=== PATIENT | female | born 1950 | race Caucasian/White ===

== ENCOUNTER 2016-05-10 15:05 | Emergency (ER) | payer MEDICARE ==
[2016-05-10 18:53] VITALS: BP 153/81
== END 2016-05-10 18:48 | disposition left against medical advice (07) ==
LOC: ED 15:05
DX: R10.9 Unspecified abdominal pain (principal); Z53.21 Procedure and treatment not carried out due to patient leaving prior to being seen by health care provider
CPT/HCPCS: 99281

== ENCOUNTER 2016-06-03 10:52 | Emergency (ER) | payer MEDICARE ==
[2016-06-03 12:13] LABS: Urine Bacteria Absent (Absent); Urine Bilirubin Negative (Negative); Urine Glucose Negative (Negative); Urine Nitrite Negative (Negative)
[2016-06-03] MEDS ORDERED: Ondansetron INJ* 2 MG/ML VIAL IV ONE (12:21)
[2016-06-03] MEDS ORDERED: Ketorolac INJ* 30 MG/ML 1 ML VIAL IV PUSH ONE (12:21)
[2016-06-03] MEDS ORDERED: NS 0.9% 1000 ML* 1,000 ML IV ONE (12:21)
[2016-06-03 12:43] LABS: Hematocrit 41 % (35-47); Hemoglobin 13.3 g/dl (12.0-16.0); Mean Corpuscular HGB Conc 33 g/dl (31-36); Mean Corpuscular Hemoglobin 27 pg (27-31); Mean Corpuscular Volume 84 fL (80-97); Mean Platelet Volume 8 um3 (7.4-10.4); Red Blood Count 4.85 10^6/ul (4.0-5.4); Red Cell Distribution Width 13 % (10.5-15); White Blood Count 7.3 10^3/ul (3.5-10.8)
--- NOTE | 2016-06-03 12:45 | ED ---
Micah Arnold Karl, scribed for Sakina Pennington MD on 06/03/16 at 1214 . GI/ HPI - HPI Summary HPI Summary: 65 y/o F presents w/ c/o bilateral/lower back pain (L>R), abd pain, and urinary frequency. Pt stated that 2-3 days ago she to feel bilateral pressure pain in her lower back that is worse on her left side that she rated at a 7/10. Pt reported that it initially felt like she "twinged something" in her back, but the pain got progressively worse and is aggravated by movement. Pt also reported mild nausea and increased urinary frequency with dark colored urine. Pt denied burning and odor with urination. No vaginal itching/discharge. Pt normally takes hydrocodone for a previous back injury and took some this morning which helped but did not resolve her pain. Pt is eating/drinking normally. Pt denies trauma. No paresthesia or extremity pain or weakness Pt states she was diagnosed with a left kidney infection on 04/12/16 at [facility] [place] and was prescribed cephalexin. States symptoms minimal improvement for her PCP prescribed Flagyl , saying it "took 6 weeks to heal." Pt is from [facility] she is scheduled to return on Sunday. Pt states shes has been communicating with her doctor via phone. No fevers, chills, rash. Hx: diverticulitis, back injury, kidney stones. - History of Current Complaint Chief Complaint: EDFlankPain Time Seen by Provider: 06/03/16 12:03 Stated Complaint: PAIN IN BACK AND ABD Hx Obtained From: Patient Onset/Duration: Started Days Ago, Atraumatic, Worse Since Timing: Constant Severity: Moderate Current Severity: Moderate Pain Intensity: 7 - bilat back pain Location of Pain: Flank - bilat Pain Characteristics: Pressure Pain Radiates to: Flank Associated Signs and Symptoms: Positive: Back Pain, Nausea, Flank Pain, Abdominal Pain - suprapubic. Negative: Dizziness, Weakness, Syncope, Vomiting, Chills, Lightheadedness Aggravating Factor(s): Palpation, Movement, Urination, Movement, Walking/ Exertion - Allergy/Home Medications Allergies/Adverse Reactions: Allergies Allergy/AdvReac Type Severity Reaction Status Date / Time Cephalosporins Allergy Unknown Verified 05/10/16 15:11 Reaction Details Ciprofloxacin Allergy GI Upset Verified 05/10/16 15:11 Codeine Allergy Rash Verified 05/10/16 15:11 Meperidine Allergy Unknown Verified 05/10/16 15:11 Reaction Details Morphine Allergy Unknown Verified 05/10/16 15:11 Reaction Details Naloxone Allergy Unknown Verified 05/10/16 15:11 Reaction Details Opium Allergy Unknown Verified 05/10/16 15:11 Reaction Details Penicillins Allergy Rash Verified 05/10/16 15:11 Sulfa Antibiotics Allergy GI Upset Verified 05/10/16 15:11 PMH/Surg Hx/FS Hx/Imm Hx Previously Healthy: No Endocrine/Hematology History: Denies: Hx Anticoagulant Therapy, Hx Diabetes Cardiovascular History: Reports: Hx Hypertension GI History: Reports: Hx Diverticulosis History: Reports: Hx Kidney Stones Psychiatric History: Reports: Hx Anxiety - Surgical History Surgery Procedure, Year, and Place: hysterectomy, oopherectomy, cholecystectomy Infectious Disease History: No Infectious Disease History: Denies: Traveled Outside the [place] in Last 30 Days - Family History Known Family History: Positive: Other - diverticulitis - Social History Alcohol Use: None Hx Substance Use: No Substance Use Type: Reports: None Smoking Status (MU): Former Smoker Review of Systems Constitutional: Negative Negative: Fever, Chills Eyes: Negative ENT: Negative Cardiovascular: Negative Negative: Chest Pain Respiratory: Negative Negative: Shortness Of Breath, Cough Positive: Abdominal Pain - suprapubic, Nausea Positive: frequency, flank pain. Negative: burning, discharge Positive: Myalgia - lower back Skin: Negative Neurological: Negative Negative: Weakness, Paresthesia Psychological: Normal All Other Systems Reviewed And Are Negative: Yes Physical Exam Triage Information Reviewed: Yes Vital Signs On Initial Exam: Initial Vitals Temp Pulse Resp BP Pulse Ox 98.6 F 102 16 116/88 98 06/03/16 10:57 06/03/16 10:57 06/03/16 10:57 06/03/16 10:57 06/03/16 10:57 Vital Signs Reviewed: Yes Appearance: Positive: Well-Appearing - A+Ox3 watching TV well appearing, minimal discomfort with movement, Well-Nourished, Pain Distress - mild discomfort Skin: Positive: Warm, Skin Color Reflects Adequate Perfusion, Dry Head/Face: Positive: Normal Head/Face Inspection Eyes: Positive: Normal, EOMI, DULCE MARIA ENT: Positive: Pharynx normal, TMs normal Neck: Positive: Supple, Nontender, No Lymphadenopathy Respiratory/Lung Sounds: Positive: Clear to Auscultation, Breath Sounds Present. Negative: Rales, Wheezes Cardiovascular: Positive: Normal, RRR. Negative: Murmur Abdomen Description: Positive: Nontender, Soft, Other: - mild suprapubic pain. no CVA tenderness Bowel Sounds: Positive: Present Musculoskeletal: Positive: Other - Pain in paraspinal lumbar area with palpation. Pt resists SLE second to pain in back. +flex/ext knee, ankle without difficulty Neurological: Positive: Normal, Sensory/Motor Intact, Alert, Oriented to Person Place, Time Psychiatric: Positive: Normal, Affect/Mood Appropriate AVPU Assessment: Alert - Holcomb Coma Scale Best Eye Response: 4 - Spontaneous Best Motor Response: 6 - Obeys Commands Best Verbal Response: 5 - Oriented Coma Scale Total: 15 Diagnostics - Vital Signs Vital Signs Temp Pulse Resp BP Pulse Ox 06/03/16 10:57 98.6 F 102 16 116/88 98 - Laboratory Lab Results: Lab Results 06/03/16 06/03/16 Range/Units 12:00 12:27 WBC 7.3 (3.5-10.8) 10^3/ul RBC 4.85 (4.0-5.4) 10^6/ul Hgb 13.3 (12.0-16.0) g/dl Hct 41 (35-47) % MCV 84 (80-97) fL MCH 27 (27-31) pg MCHC 33 (31-36) g/dl RDW 13 (10.5-15) % Plt Count 245 (150-450) 10^3/ul MPV 8 (7.4-10.4) um3 Neut % (Auto) 62.4 (38-83) % Lymph % (Auto) 28.0 (25-47) % Curry % (Auto) 7.0 (1-9) % Eos % (Auto) 1.8 (0-6) % Baso % (Auto) 0.8 (0-2) % Absolute Neuts (auto) 4.5 (1.5-7.7) 10^3/ul Absolute Lymphs (auto) 2.0 (1.0-4.8) 10^3/ul Absolute Monos (auto) 0.5 (0-0.8) 10^3/ul Absolute Eos (auto) 0.1 (0-0.6) 10^3/ul Absolute Basos (auto) 0.1 (0-0.2) 10^3/ul Absolute Nucleated RBC 0 10^3/ul Nucleated RBC % 0 Urine Color Yellow Urine Appearance Clear Urine pH 5.0 (5-9) Ur Specific [place] 1.025 (1.010-1.030) Urine Protein Negative (Negative) Urine Ketones Negative (Negative) Urine Blood Negative (Negative) Urine Nitrate Negative (Negative) Urine Bilirubin Negative (Negative) Urine Urobilinogen Negative (Negative) Ur Leukocyte Esterase Trace H (Negative) Urine WBC (Auto) Trace(0-5/hpf) (Absent) Urine RBC (Auto) Absent (Absent) Ur Squamous Epith Cells Present H (Absent) Urine Bacteria Absent (Absent) Urine Glucose Negative (Negative) Urine Ascorbic Acid * H (Negative) Result Diagrams: 06/03/16 12:27 06/03/16 12:27 Lab Statement: Any lab studies that have been ordered have been reviewed, and results considered in the medical decision making process. Re-Evaluation - Re-Evaluation First Eval Re-Evaluation Time: 13:18 Change: Improved - Pt sitting up at edge of bed. States feels much better. Pt states pain felt stiff lying. Pt states nausea resolved, requesting po will give bland trial Will start marcrobid for uti - culture pending Pt has Rx hydrocodone encourage Motrin, heat, stretching Will give zofran GIGU Course/Dx - Course Assessment/Plan: Pt presents with progressive low back pain and now with suprapubic discomfort. Pt also reports urinary frequency. Pt reports h/o pyelonephritis in Dec and states feels similar. Pt well appearing in minimal discomfort. Reviewed labs and imaging from last visit. Pt's pain seems more c/ w lumbar back pain and not CVA. will check labs, urine. zofran, IVF, toradol. Will hold imaging pending labs and reassess. pt comfortable and in agreement with plan - Diagnoses Provider Diagnoses: UTI (urinary tract infection), Back pain Discharge - Discharge Plan Condition: Improved Disposition: HOME Prescriptions: Nitrofurantoin Monohyd Macro [Macrobid] 100 mg PO BID #14 cap Ondansetron ODT TAB* [Zofran Odt TAB*] 4 mg PO Q6H PRN #10 tab.odt PRN Reason: nausea Patient Education Materials: Urinary Tract Infection in Women (ED), Low Back Strain (ED) Referrals: Non Staff,Doctor [Primary Care Provider] - Additional Instructions: - Stay well hydrated. Drink plenty of non-alcoholic, non-caffinated beverages - Your testing reveals an early bladder infection - the doctor is not concerned you have a kidney infection today. Take antibiotics as prescribed - It is recommended you alternate ibuprofen (advil, motrin) and tylenol product (tylenol or hydrocodone) every 3 hours for pain or fever. Take with food. Do NOT take for more than 4-5 days - slow, gentle stretching exercises are important -apply heat to your low back - then stretching exercises - Schedule a follow-up appointment with your doctor when you return home. Contact your doctor or return with questions or concerns The documentation as recorded by the Micah lopez Karl accurately reflects the service I personally performed and the decisions made by me, Sakina Pennington MD.
[2016-06-03 12:53] LABS: Albumin 3.8 g/dL (3.2-5.2); BUN/Creatinine Ratio 10.6 (8-20); Calcium 9.7 mg/dL (8.6-10.3); EGFR African American 76.9 (>60); EGFR Non-African American 59.8 (>60); Globulin 2.8 g/dL (2-4); Potassium 4.1 mmol/L (3.5-5.0); Total Bilirubin 0.5 mg/dL (0.2-1.0); Total Protein 6.6 g/dL (6.4-8.9)
[2016-06-03] MEDS ORDERED: Nitrofurantoin Macrocrystals* 100 MG CAP PO ONE (13:19)
[2016-06-03 14:06] VITALS: BP 108/72
== END 2016-06-03 14:07 | disposition home or self-care (01) ==
LOC: ED 10:52
DX: N39.0 Urinary tract infection, site not specified (principal); M54.5 Low back pain; Z88.0 Allergy status to penicillin; Z88.2 Allergy status to sulfonamides; Z88.5 Allergy status to narcotic agent
CPT/HCPCS: 36415; 80053; 81003; 81015; 85025; 87086; 99283; A9270-GY; J1885; J2405

== ENCOUNTER 2023-03-24 05:55 | Observation (INO) ==
[2023-03-24 06:44] LABS: Hematocrit 39.3 % (35-45); Hemoglobin 12.5 g/dL (11.5-14.3); Mean Corpuscular Hemoglobin 24.3 pg (27-33); Mean Corpuscular Hgb Conc 31.8 g/dL (31-36); Mean Corpuscular Volume 76.2 fL (80-97); Mean Platelet Volume 8.2 fL (7.5-11.2); Platelet Count 270 10^3/uL (150-450); Red Blood Count 5.15 10^6/uL (3.63-4.92); Red Cell Distribution Width 24.1 % (12-17); White Blood Count 15.7 10^3/uL (3.8-11.8)
[2023-03-24] MEDS ORDERED: Ondansetron 4 mg VIAL 2 MG/ML 2 ml VIAL IV ONE (06:51)
[2023-03-24] MEDS ORDERED: Acetaminophen IV 1 GM/100ML 1,000 MG/100 ML BAG IV ONE (06:51)
[2023-03-24 06:55] LABS: ALT 8 U/L (7-52); AST 9 U/L (13-39); Albumin 3.8 g/dL (3.2-5.2); Albumin/Globulin Ratio 1.4 (1-3); Alkaline Phosphatase 75 U/L (35-149); Anion Gap 6 mmol/L (2-16); Blood Urea Nitrogen 10 mg/dL (6-24); CO2 Carbon Dioxide 27 mmol/L (22-32); Calcium 9.5 mg/dL (8.6-10.3); Chloride 105 mmol/L (101-111); Globulin 2.8 g/dL (2-4); Glucose 117 mg/dL (70-100); Lipase 19 U/L (11.0-82.0); Potassium 4.1 mmol/L (3.5-5.0); Sodium 138 mmol/L (135-145); Total Bilirubin 0.5 mg/dL (0.2-1.0); Total Protein 6.6 g/dL (6.4-8.9); eGFR CKD-EPI 78.2 (>60)
[2023-03-24 07:01] LABS: High Sens Troponin Baseline < 3 pg/mL (<15)
[2023-03-24] MEDS ORDERED: Iohexol 350 (CONTRAST) 500 ML MDV IV ONE (07:01)
[2023-03-24 07:18] LABS: ABS Basophils 0.1 10^3/uL (0.0-0.1); ABS Eosinophils 0.1 10^3/uL (0.0-0.5); ABS Lymphocytes 1.3 10^3/uL (1.0-4.8); ABS Monocytes 1.2 10^3/uL (0.0-0.9); Anisocytosis 2+; Eosinophil % 0.5 %; Large Platelets Present; Lymphocyte % 8.4 %; Microcytosis 1+
[2023-03-24] MEDS ORDERED: metroNIDAZOLE IV 500 MG/100ML 500 MG/100 ML BAG IVPB ONE (08:13)
[2023-03-24] MEDS ORDERED: Ciprofloxacin 400mg IVPREMIX 400 MG/200 ML BAG IVPB ONE (08:13)
[2023-03-24 08:20] LABS: High Sensitivity Troponin 1 Hr < 3 pg/mL (<15)
[2023-03-24] MEDS ORDERED: Lactated Ringers SEPSIS* BAG 1,920 ML IV ONE (08:20)
[2023-03-24] MEDS ORDERED: cefTRIAXone 1 gm/50 mL D5W 1 GM/50 ML BAG IV ONE (08:28)
[2023-03-24] MEDS ORDERED: CEFTRIAXONE IV ONE (09:00)
[2023-03-24] MEDS ORDERED: [UNRECOGNIZED DRUG - OTHER] IV ONE (09:00)
[2023-03-24 10:43] LABS: Urine Appearance Clear; Urine Bacteria Absent (Absent); Urine Bilirubin Negative (Negative); Urine Blood Negative (Negative); Urine Color Yellow; Urine Glucose Negative (Negative); Urine Ketones Negative (Negative); Urine Nitrite Negative (Negative); Urine Protein Negative (Negative); Urine Red Blood Cell Trace(0-2/hpf) (Absent); Urine Squamous Epithelial Cell Present (Absent); Urine Urobilinogen Negative (Negative); Urine White Blood Cell 1+(6-10/hpf) (Absent)
[2023-03-24 10:49] LABS: Urine Specific Gravity > 1.060 (1.002-1.030)
[2023-03-24 11:31] LABS: C Reactive Protein 103.83 mg/L (<8.01)
[2023-03-24] MEDS: NS 0.9% 1000 ml BAG 1,000 ML IV SCH (12:48)
[2023-03-24] MEDS: Carbidopa/Levodop 25/100 MG TAB PO SCH ×2 (12:50→16:31)
[2023-03-24] MEDS: Acetaminophen IV 1 GM/100ML 1,000 MG/100 ML BAG IV PRN (19:25)
[2023-03-24] MEDS: Carbidopa/Levodop CR 50/200 TAB.CR PO SCH (20:28)
[2023-03-24] MEDS: Enoxaparin 40 MG/0.4 ML SYR SUBCUT SCH (20:29)
[2023-03-25] MEDS: NS 0.9% 1000 ml BAG 1,000 ML IV SCH (02:36)
[2023-03-25 06:35] LABS: C Reactive Protein 158.53 mg/L (<8.01); Calcium 9.1 mg/dL (8.6-10.3); Creatinine, Serum 0.76 mg/dL (0.51-0.95); eGFR CKD-EPI 83.2 (>60)
[2023-03-25 06:47] LABS: ABS Basophils 0.1 10^3/uL (0.0-0.1); ABS Eosinophils 0.1 10^3/uL (0.0-0.5); ABS Lymphocytes 1.5 10^3/uL (1.0-4.8); ABS Monocytes 0.8 10^3/uL (0.0-0.9); ABS Neutrophils 8.5 10^3/uL (1.5-7.6); Hematocrit 36.2 % (35-45); Hemoglobin 11.7 g/dL (11.5-14.3); Lymphocyte % 13.7 %; Mean Corpuscular Hemoglobin 24.8 pg (27-33); Mean Corpuscular Hgb Conc 32.3 g/dL (31-36); Mean Corpuscular Volume 76.7 fL (80-97); Mean Platelet Volume 8.6 fL (7.5-11.2); Platelet Count 236 10^3/uL (150-450); Red Blood Count 4.73 10^6/uL (3.63-4.92)
[2023-03-25] MEDS: cefTRIAXone 1 gm/50 mL D5W 1 GM/50 ML BAG IV SCH (08:30)
[2023-03-25] MEDS: CMC:LINACLOTIDE 72 MCG CAP (NF) PO SCH (08:30)
[2023-03-25] MEDS: Carbidopa/Levodop 25/100 MG TAB PO SCH ×3 (08:32→16:22)
[2023-03-25] MEDS ORDERED: Furosemide 20 mg/2 ml IV VIAL IV ONE (14:40)
[2023-03-25] MEDS: Enoxaparin 40 MG/0.4 ML SYR SUBCUT SCH (21:11)
[2023-03-25] MEDS: Carbidopa/Levodop CR 50/200 TAB.CR PO SCH (21:14)
[2023-03-26] MEDS: Acetaminophen IV 1 GM/100ML 1,000 MG/100 ML BAG IV PRN (06:10)
[2023-03-26 07:46] LABS: C Reactive Protein 141.87 mg/L (<8.01); Calcium 9.6 mg/dL (8.6-10.3); Creatinine, Serum 0.72 mg/dL (0.51-0.95); Potassium 3.5 mmol/L (3.5-5.0); eGFR CKD-EPI 88.8 (>60)
[2023-03-26 07:49] LABS: Hematocrit 38.3 % (35-45); Hemoglobin 12.3 g/dL (11.5-14.3); Mean Corpuscular Hemoglobin 24.5 pg (27-33); Mean Corpuscular Hgb Conc 32.1 g/dL (31-36); Mean Corpuscular Volume 76.5 fL (80-97); Mean Platelet Volume 8.3 fL (7.5-11.2); Platelet Count 264 10^3/uL (150-450); Red Blood Count 5.01 10^6/uL (3.63-4.92); Red Cell Distribution Width 23.5 % (12-17); White Blood Count 7.7 10^3/uL (3.8-11.8)
[2023-03-26] MEDS: Carbidopa/Levodop 25/100 MG TAB PO SCH ×3 (07:57→16:55)
[2023-03-26] MEDS: cefTRIAXone 1 gm/50 mL D5W 1 GM/50 ML BAG IV SCH (08:18)
[2023-03-26 08:25] LABS: ABS Eosinophils 0.2 10^3/uL (0.0-0.5); ABS Lymphocytes 1.4 10^3/uL (1.0-4.8); ABS Monocytes 0.5 10^3/uL (0.0-0.9); ABS Neutrophils 5.6 10^3/uL (1.5-7.6); ABS Nucleated RBC 0.01 10^3/ul; Lymphocyte % 18.2 %; Nucleated Red Blood Cells % 0.1 %/100WBC (0.0-0.8)
[2023-03-26] MEDS: CMC:LINACLOTIDE 72 MCG CAP (NF) PO SCH (09:01)
[2023-03-26] MEDS: Enoxaparin 40 MG/0.4 ML SYR SUBCUT SCH (20:34)
[2023-03-26] MEDS: Carbidopa/Levodop CR 50/200 TAB.CR PO SCH (20:35)
[2023-03-27] MEDS: cefTRIAXone 1 gm/50 mL D5W 1 GM/50 ML BAG IV SCH (08:04)
[2023-03-27] MEDS: Carbidopa/Levodop 25/100 MG TAB PO SCH ×2 (08:06→12:19)
[2023-03-27] MEDS: CMC:LINACLOTIDE 72 MCG CAP (NF) PO SCH (08:06)
[2023-03-27 13:28] VITALS: BP 109/66
== END 2023-03-27 15:27 | disposition home or self-care (01) ==
LOC: EDHOLD 05:55 → ED 05:55 → MED 12:04
PROVIDERS: ADMIT Hospitalist; ATTEND Hospitalist

== ENCOUNTER 2023-04-03 16:21 | Inpatient (IN) ==
[2023-04-03 17:26] LABS: Anion Gap 4 mmol/L (2-16); Blood Urea Nitrogen 8 mg/dL (6-24); CO2 Carbon Dioxide 31 mmol/L (22-32); Chloride 103 mmol/L (101-111); Creatinine, Serum 0.68 mg/dL (0.51-0.95); Glucose 92 mg/dL (70-100); Potassium 3.9 mmol/L (3.5-5.0); Sodium 138 mmol/L (135-145); eGFR CKD-EPI 92.5 (>60)
[2023-04-03 17:32] LABS: High Sens Troponin Baseline 3 pg/mL (<15)
[2023-04-03 17:36] LABS: ALT < 3 U/L (7-52); AST 9 U/L (13-39); Albumin 3.7 g/dL (3.2-5.2); Albumin/Globulin Ratio 1.4 (1-3); Alkaline Phosphatase 63 U/L (35-149); Globulin 2.6 g/dL (2-4); Total Bilirubin 0.4 mg/dL (0.2-1.0); Total Protein 6.3 g/dL (6.4-8.9)
[2023-04-03] MEDS ORDERED: Iohexol 350 (CONTRAST) 500 ML MDV IV ONE (17:38)
[2023-04-03 18:02] LABS: ABS Basophils 0.1 10^3/uL (0.0-0.1); ABS Eosinophils 0.1 10^3/uL (0.0-0.5); ABS Lymphocytes 1.4 10^3/uL (1.0-4.8); ABS Monocytes 1.3 10^3/uL (0.0-0.9); ABS Neutrophils 13.1 10^3/uL (1.5-7.6); Anisocytosis 1+; Eosinophil % 0.3 %; Hematocrit 36.8 % (35-45); Lymphocyte % 8.5 %; Mean Corpuscular Hgb Conc 32.5 g/dL (31-36); Mean Platelet Volume 8.2 fL (7.5-11.2); Microcytosis 1+; Platelet Count 276 10^3/uL (150-450); Red Blood Count 4.78 10^6/uL (3.63-4.92); Red Cell Distribution Width 23.4 % (12-17); White Blood Count 15.9 10^3/uL (3.8-11.8)
[2023-04-03] MEDS ORDERED: Cefepime 2 GM in Dextrose 2 GM/50 ML BAG IV ONE (18:14)
[2023-04-03] MEDS ORDERED: Ciprofloxacin 400mg IVPREMIX 400 MG/200 ML BAG IVPB ONE (18:14)
[2023-04-03] MEDS ORDERED: HYDROcodone/ACETAMIN 5/325 mg TAB PO ONE (18:15)
[2023-04-03] MEDS ORDERED: NS 0.9% 1000 ml BAG 1,000 ML IV ONE (18:15)
[2023-04-03 18:28] LABS: High Sensitivity Troponin 1 Hr 3 pg/mL (<15)
[2023-04-03] MEDS ORDERED: ZOSYN 3.375 GM x ONE DOSE over 30 miuntes IV (22:00)
[2023-04-03] MEDS ORDERED: Zosyn per Pharmacy NOTE FOLLOW UP SCH (22:00)
[2023-04-03 22:14] LABS: C Reactive Protein 98.15 mg/L (<8.01)
[2023-04-03] MEDS: Enoxaparin 40 MG/0.4 ML SYR SUBCUT SCH (23:46)
[2023-04-04] MEDS ORDERED: Piperacillin/Tazobac 3.375 BAG 3.375 GM/100 ML BAG IV SCH (02:30)
[2023-04-04] MEDS: Piperacillin/Tazobac 3.375 BAG 3.375 GM/100 ML BAG IV SCH ×3 (03:20→17:58)
[2023-04-04] MEDS: Acetaminophen IV 1 GM/100ML 1,000 MG/100 ML BAG IV SCH ×3 (04:05→21:40)
[2023-04-04] MEDS: Carbidopa/Levodop 25/100 MG TAB PO SCH ×3 (07:39→16:21)
[2023-04-04 07:51] LABS: ABS Basophils 0.1 10^3/uL (0.0-0.1); ABS Eosinophils 0.1 10^3/uL (0.0-0.5); ABS Lymphocytes 1.4 10^3/uL (1.0-4.8); ABS Neutrophils 8.9 10^3/uL (1.5-7.6); Eosinophil % 0.6 %; Hematocrit 35.4 % (35-45); Hemoglobin 11.5 g/dL (11.5-14.3); Lymphocyte % 12.5 %; Mean Corpuscular Hemoglobin 24.8 pg (27-33); Mean Corpuscular Hgb Conc 32.4 g/dL (31-36); Mean Corpuscular Volume 76.7 fL (80-97); Mean Platelet Volume 8.5 fL (7.5-11.2); Platelet Count 232 10^3/uL (150-450); Red Blood Count 4.61 10^6/uL (3.63-4.92); Red Cell Distribution Width 22.8 % (12-17); White Blood Count 11.4 10^3/uL (3.8-11.8)
[2023-04-04 08:16] LABS: Calcium 8.8 mg/dL (8.6-10.3); Creatinine, Serum 0.78 mg/dL (0.51-0.95); Potassium 3.5 mmol/L (3.5-5.0); eGFR CKD-EPI 80.6 (>60)
[2023-04-04] MEDS: CMCS: Venlafaxine 25 mg TAB (NF) PO SCH (09:33)
[2023-04-04] MEDS ORDERED: Potassium Chlor 20 meq TAB.ER PO ONE (17:41)
[2023-04-04] MEDS: Carbidopa/Levodop CR 50/200 TAB.CR PO SCH (21:42)
[2023-04-04] MEDS: Enoxaparin 40 MG/0.4 ML SYR SUBCUT SCH (21:43)
[2023-04-05] MEDS: Piperacillin/Tazobac 3.375 BAG 3.375 GM/100 ML BAG IV SCH ×3 (00:53→16:05)
[2023-04-05] MEDS: Acetaminophen IV 1 GM/100ML 1,000 MG/100 ML BAG IV SCH ×3 (04:31→21:33)
[2023-04-05 06:20] LABS: ABS Basophils 0.1 10^3/uL (0.0-0.1); ABS Eosinophils 0.1 10^3/uL (0.0-0.5); ABS Neutrophils 13.9 10^3/uL (1.5-7.6); ABS Nucleated RBC 0.01 10^3/ul; Eosinophil % 0.5 %; Hematocrit 34.8 % (35-45); Hemoglobin 10.9 g/dL (11.5-14.3); Lymphocyte % 6.4 %; Mean Corpuscular Hemoglobin 24.4 pg (27-33); Mean Corpuscular Hgb Conc 31.4 g/dL (31-36); Mean Platelet Volume 8.7 fL (7.5-11.2); Platelet Count 238 10^3/uL (150-450); Red Blood Count 4.47 10^6/uL (3.63-4.92); Red Cell Distribution Width 22.4 % (12-17); White Blood Count 16.1 10^3/uL (3.8-11.8)
[2023-04-05] MEDS: Carbidopa/Levodop 25/100 MG TAB PO SCH ×3 (06:39→16:05)
[2023-04-05] MEDS: CMCS: Venlafaxine 25 mg TAB (NF) PO SCH (07:59)
[2023-04-05] MEDS: Carbidopa/Levodop CR 50/200 TAB.CR PO SCH (21:33)
[2023-04-05] MEDS: Enoxaparin 40 MG/0.4 ML SYR SUBCUT SCH (21:34)
[2023-04-06] MEDS: Piperacillin/Tazobac 3.375 BAG 3.375 GM/100 ML BAG IV SCH ×2 (01:16→08:12)
[2023-04-06] MEDS: Acetaminophen IV 1 GM/100ML 1,000 MG/100 ML BAG IV SCH ×2 (04:46→12:40)
[2023-04-06 07:43] LABS: Hemoglobin 11.5 g/dL (11.5-14.3); Mean Corpuscular Hemoglobin 25.2 pg (27-33); Mean Corpuscular Volume 78.7 fL (80-97); Mean Platelet Volume 8.3 fL (7.5-11.2); Platelet Count 230 10^3/uL (150-450); Red Blood Count 4.57 10^6/uL (3.63-4.92); Red Cell Distribution Width 22.2 % (12-17)
[2023-04-06] MEDS: Carbidopa/Levodop 25/100 MG TAB PO SCH ×3 (08:12→16:40)
[2023-04-06] MEDS: CMCS: Venlafaxine 25 mg TAB (NF) PO SCH (08:12)
[2023-04-06 08:30] LABS: ABS Basophils 0.1 10^3/uL (0.0-0.1); ABS Eosinophils 0.1 10^3/uL (0.0-0.5); ABS Lymphocytes 1.3 10^3/uL (1.0-4.8); ABS Monocytes 0.7 10^3/uL (0.0-0.9); ABS Neutrophils 7.8 10^3/uL (1.5-7.6); ABS Nucleated RBC 0.01 10^3/ul; Eosinophil % 0.8 %; Lymphocyte % 12.6 %; Nucleated Red Blood Cells % 0.1 %/100WBC (0.0-0.8)
[2023-04-06 14:28] VITALS: BP 114/68
== END 2023-04-06 17:20 | disposition home health service (06) | DRG 392 ==
LOC: ED 16:21 → EDHOLD 21:36 → SUATTDRO 21:36 → MED 04-04 00:04
PROVIDERS: ADMIT Internal Medicine; ATTEND Hospitalist

== ENCOUNTER 2023-04-19 14:12 | Inpatient (IN) ==
[2023-04-19] MEDS ORDERED: Ondansetron 4 mg VIAL 2 MG/ML 2 ml VIAL IV ONE (14:53)
[2023-04-19] MEDS ORDERED: Acetaminophen IV 1 GM/100ML 1,000 MG/100 ML BAG IV ONE (14:53)
[2023-04-19] MEDS ORDERED: Lactated Ringers 1000 ml BAG 1,000 ML IV ONE (14:54)
[2023-04-19 15:23] LABS: Anion Gap 6 mmol/L (2-16); Blood Urea Nitrogen 9 mg/dL (6-24); CO2 Carbon Dioxide 29 mmol/L (22-32); Calcium 9.6 mg/dL (8.6-10.3); Chloride 101 mmol/L (101-111); Creatinine, Serum 0.68 mg/dL (0.51-0.95); Glucose 105 mg/dL (70-100); Potassium 3.9 mmol/L (3.5-5.0); Sodium 136 mmol/L (135-145); eGFR CKD-EPI 92.5 (>60)
[2023-04-19 15:30] LABS: ALT < 3 U/L (7-52); AST 8 U/L (13-39); Albumin 3.8 g/dL (3.2-5.2); Albumin/Globulin Ratio 1.3 (1-3); Alkaline Phosphatase 65 U/L (35-149); Globulin 2.9 g/dL (2-4); Hematocrit 37.4 % (35-45); Hemoglobin 12.2 g/dL (11.5-14.3); Lipase < 10 U/L (11.0-82.0); Mean Corpuscular Hemoglobin 25.3 pg (27-33); Mean Corpuscular Hgb Conc 32.6 g/dL (31-36); Mean Corpuscular Volume 77.7 fL (80-97); Mean Platelet Volume 9.3 fL (7.5-11.2); Platelet Count 244 10^3/uL (150-450); Red Blood Count 4.81 10^6/uL (3.63-4.92); Total Bilirubin 0.7 mg/dL (0.2-1.0); Total Protein 6.7 g/dL (6.4-8.9); White Blood Count 14.7 10^3/uL (3.8-11.8)
[2023-04-19] MEDS ORDERED: Iohexol 300 (CONTRAST) 10 ML SDV IV ONE (15:56)
[2023-04-19 16:06] LABS: ABS Basophils 0.1 10^3/uL (0.0-0.1); ABS Eosinophils 0.1 10^3/uL (0.0-0.5); ABS Lymphocytes 1.1 10^3/uL (1.0-4.8); ABS Neutrophils 12.5 10^3/uL (1.5-7.6); ABS Nucleated RBC 0.01 10^3/ul; Anisocytosis 1+; Eosinophil % 0.6 %; Lymphocyte % 7.5 %
[2023-04-19] MEDS ORDERED: Piperacillin/Tazobac 3.375 BAG 3.375 GM/100 ML BAG IV ONE (16:43)
[2023-04-19] MEDS ORDERED: Carbidopa/Levodop 25/100 MG TAB PO ONE (16:58)
[2023-04-19] MEDS: Enoxaparin 40 MG/0.4 ML SYR SUBCUT SCH (17:46)
[2023-04-19] MEDS ORDERED: Zosyn per Pharmacy NOTE FOLLOW UP SCH (18:00)
[2023-04-19] MEDS ORDERED: Lactated Ringers 1000 ml BAG 1,000 ML IV SCH (19:00)
[2023-04-19] MEDS ORDERED: Acetaminophen IV 1 GM/100ML 1,000 MG/100 ML BAG IV PRN (19:47)
[2023-04-19] MEDS: ZOSYN 3.375 GM Q8H per EXTENDED INFUSION IV SCH (21:07)
[2023-04-19] MEDS: Carbidopa/Levodop CR 50/200 TAB.CR PO SCH (21:07)
[2023-04-20] MEDS: Morphine 2 MG/ML SYRINGE IV PRN ×4 (01:42→20:07)
[2023-04-20] MEDS: ZOSYN 3.375 GM Q8H per EXTENDED INFUSION IV SCH ×4 (06:21→20:12)
[2023-04-20 07:34] LABS: Hematocrit 35.9 % (35-45); Hemoglobin 11.7 g/dL (11.5-14.3); Mean Corpuscular Hemoglobin 25.3 pg (27-33); Mean Corpuscular Hgb Conc 32.4 g/dL (31-36); Mean Corpuscular Volume 78.1 fL (80-97); Mean Platelet Volume 9.4 fL (7.5-11.2); Platelet Count 218 10^3/uL (150-450); Red Cell Distribution Width 20.6 % (12-17); White Blood Count 9.6 10^3/uL (3.8-11.8)
[2023-04-20 07:43] LABS: Calcium 9.2 mg/dL (8.6-10.3); Creatinine, Serum 0.64 mg/dL (0.51-0.95); Magnesium 1.8 mg/dL (1.9-2.7); Potassium 3.9 mmol/L (3.5-5.0); eGFR CKD-EPI 93.8 (>60)
[2023-04-20 07:44] LABS: ABS Basophils 0.1 10^3/uL (0.0-0.1); ABS Eosinophils 0.1 10^3/uL (0.0-0.5); ABS Lymphocytes 1.5 10^3/uL (1.0-4.8); ABS Monocytes 0.8 10^3/uL (0.0-0.9); ABS Neutrophils 7.2 10^3/uL (1.5-7.6); ABS Nucleated RBC 0.01 10^3/ul; Eosinophil % 0.7 %; Lymphocyte % 15.7 %; Nucleated Red Blood Cells % 0.1 %/100WBC (0.0-0.8)
[2023-04-20] MEDS: Carbidopa/Levodop 25/100 MG TAB PO SCH ×3 (07:48→16:27)
[2023-04-20] MEDS: CMCS: Venlafaxine 25 mg TAB (NF) PO SCH (07:49)
[2023-04-20] MEDS ORDERED: Magnesium Sulfate IV 1GM/100ML 1 GM/100 ML BAG IV ONE (08:00)
[2023-04-20] MEDS ORDERED: Ondansetron 4 mg VIAL 2 MG/ML 2 ml VIAL IV ONE (09:07)
[2023-04-20] MEDS ORDERED: Lactated Ringers 1000 ml BAG 1,000 ML IV SCH (12:00)
[2023-04-20] MEDS: Enoxaparin 40 MG/0.4 ML SYR SUBCUT SCH (16:52)
[2023-04-20] MEDS: Carbidopa/Levodop CR 50/200 TAB.CR PO SCH (20:06)
[2023-04-21] MEDS: Morphine 2 MG/ML SYRINGE IV PRN ×3 (03:30→22:14)
[2023-04-21] MEDS: ZOSYN 3.375 GM Q8H per EXTENDED INFUSION IV SCH (05:08)
[2023-04-21] MEDS: Carbidopa/Levodop 25/100 MG TAB PO SCH ×3 (06:07→16:46)
[2023-04-21 07:52] LABS: Hematocrit 36.2 % (35-45); Hemoglobin 11.8 g/dL (11.5-14.3); Mean Corpuscular Hemoglobin 25.6 pg (27-33); Mean Corpuscular Hgb Conc 32.8 g/dL (31-36); Mean Corpuscular Volume 78.1 fL (80-97); Mean Platelet Volume 8.9 fL (7.5-11.2); Platelet Count 228 10^3/uL (150-450); Red Blood Count 4.63 10^6/uL (3.63-4.92); Red Cell Distribution Width 20.1 % (12-17); White Blood Count 5.5 10^3/uL (3.8-11.8)
[2023-04-21 07:56] LABS: Calcium 9.4 mg/dL (8.6-10.3); Creatinine, Serum 0.73 mg/dL (0.51-0.95); eGFR CKD-EPI 87.3 (>60)
[2023-04-21 09:00] LABS: ABS Eosinophils 0.1 10^3/uL (0.0-0.5); ABS Monocytes 0.5 10^3/uL (0.0-0.9); ABS Neutrophils 3.9 10^3/uL (1.5-7.6); ABS Nucleated RBC 0.01 10^3/ul; Anisocytosis 1+; Eosinophil % 2.2 %; Lymphocyte % 18.9 %; Microcytosis 1+; Nucleated Red Blood Cells % 0.1 %/100WBC (0.0-0.8)
[2023-04-21] MEDS: Ondansetron 4 mg VIAL 2 MG/ML 2 ml VIAL IV PRN ×2 (09:27→22:15)
[2023-04-21] MEDS: CMCS: Venlafaxine 25 mg TAB (NF) PO SCH (09:34)
[2023-04-21 10:22] LABS: C Reactive Protein 91.84 mg/L (<8.01)
[2023-04-21] MEDS: Enoxaparin 40 MG/0.4 ML SYR SUBCUT SCH (16:48)
[2023-04-21] MEDS: Carbidopa/Levodop CR 50/200 TAB.CR PO SCH (20:01)
[2023-04-22] MEDS: Carbidopa/Levodop 25/100 MG TAB PO SCH ×3 (05:42→17:18)
[2023-04-22] MEDS: Morphine 2 MG/ML SYRINGE IV PRN ×4 (05:47→19:33)
[2023-04-22 06:45] LABS: Hematocrit 36.6 % (35-45); Hemoglobin 11.8 g/dL (11.5-14.3); Mean Corpuscular Hemoglobin 25.3 pg (27-33); Mean Corpuscular Hgb Conc 32.2 g/dL (31-36); Mean Corpuscular Volume 78.6 fL (80-97); Mean Platelet Volume 9.1 fL (7.5-11.2); Platelet Count 238 10^3/uL (150-450); Red Blood Count 4.66 10^6/uL (3.63-4.92); Red Cell Distribution Width 19.7 % (12-17); White Blood Count 4.6 10^3/uL (3.8-11.8)
[2023-04-22 06:52] LABS: Calcium 9.2 mg/dL (8.6-10.3); Creatinine, Serum 0.66 mg/dL (0.51-0.95); Magnesium 1.9 mg/dL (1.9-2.7); Potassium 4.2 mmol/L (3.5-5.0); eGFR CKD-EPI 93.1 (>60)
[2023-04-22 07:37] LABS: ABS Eosinophils 0.1 10^3/uL (0.0-0.5); ABS Lymphocytes 1.3 10^3/uL (1.0-4.8); ABS Monocytes 0.5 10^3/uL (0.0-0.9); ABS Neutrophils 2.7 10^3/uL (1.5-7.6); Eosinophil % 3.1 %; Lymphocyte % 27.2 %; Nucleated Red Blood Cells % 0.1 %/100WBC (0.0-0.8)
[2023-04-22] MEDS: CMCS: Venlafaxine 25 mg TAB (NF) PO SCH (10:05)
[2023-04-22] MEDS: Enoxaparin 40 MG/0.4 ML SYR SUBCUT SCH (17:18)
[2023-04-22] MEDS: Carbidopa/Levodop CR 50/200 TAB.CR PO SCH (19:58)
[2023-04-23] MEDS: Carbidopa/Levodop 25/100 MG TAB PO SCH ×3 (06:14→15:09)
[2023-04-23] MEDS: Morphine 2 MG/ML SYRINGE IV PRN ×3 (06:14→15:08)
[2023-04-23] MEDS: CMCS: Venlafaxine 25 mg TAB (NF) PO SCH (10:59)
[2023-04-23 14:01] VITALS: BP 115/66
== END 2023-04-23 16:30 | disposition home or self-care (01) | DRG 392 ==
LOC: ED 14:12 → EDHOLD 17:11 → SUATTDRO 17:11 → MEDTELE 04-20 11:26
PROVIDERS: ADMIT Student in an Organized Health Care Education/Training Program; ATTEND Hospitalist

== ENCOUNTER 2023-06-27 13:09 | Observation (INO) ==
[2023-06-27 13:39] LABS: ABS Basophils 0.1 10^3/uL (0.0-0.1); ABS Lymphocytes 1.5 10^3/uL (1.0-4.8); ABS Monocytes 0.5 10^3/uL (0.0-0.9); ABS Neutrophils 7.6 10^3/uL (1.5-7.6); ABS Nucleated RBC 0.01 10^3/ul; Eosinophil % 0.3 %; Hematocrit 40.2 % (35-45); Lymphocyte % 15.2 %; Mean Corpuscular Hemoglobin 25.5 pg (27-33); Mean Corpuscular Hgb Conc 32.4 g/dL (31-36); Mean Corpuscular Volume 78.8 fL (80-97); Mean Platelet Volume 8.2 fL (7.5-11.2); Nucleated Red Blood Cells % 0.1 %/100WBC (0.0-0.8); Platelet Count 299 10^3/uL (150-450); Red Cell Distribution Width 16.4 % (12-17); White Blood Count 9.6 10^3/uL (3.8-11.8)
[2023-06-27] MEDS: Lactated Ringers 1000 ml BAG 1,000 ML IV ONE ×2 (13:53→15:35)
[2023-06-27 14:01] LABS: High Sens Troponin Baseline 3 pg/mL (<15)
[2023-06-27] MEDS: fentaNYL 100 mcg/2 ml 50 MCG/ML VIAL IV SLOW PU ONE ×2 (14:05→15:32)
[2023-06-27 14:20] LABS: Anion Gap 7 mmol/L (2-16); Blood Urea Nitrogen 13 mg/dL (6-24); C Reactive Protein 5.55 mg/L (<8.01); CO2 Carbon Dioxide 29 mmol/L (22-32); Calcium 9.8 mg/dL (8.6-10.3); Chloride 104 mmol/L (101-111); Creatinine, Serum 0.93 mg/dL (0.51-0.95); Glucose 113 mg/dL (70-100); INR 1.12 (0.83-1.13); Potassium 4.4 mmol/L (3.5-5.0); Sodium 140 mmol/L (135-145); eGFR CKD-EPI 65.3 (>60)
[2023-06-27 14:36] LABS: ALT < 3 U/L (7-52); AST 15 U/L (13-39); Albumin 4.2 g/dL (3.2-5.2); Albumin/Globulin Ratio 1.6 (1-3); Alkaline Phosphatase 81 U/L (35-149); Globulin 2.6 g/dL (2-4); Total Bilirubin 0.6 mg/dL (0.2-1.0); Total Protein 6.8 g/dL (6.4-8.9)
[2023-06-27] MEDS: Iodixanol (CONTRAST) 320 MG/ML 100 ML SDV IV ONE (14:42)
[2023-06-27 15:29] LABS: High Sensitivity Troponin 1 Hr 3 pg/mL (<15)
[2023-06-27] MEDS: Carbidopa/Levodop 25/100 MG TAB PO ONE (17:17)
[2023-06-27] MEDS: NS 0.9% 1000 ml BAG 1,000 ML IV SCH (20:31)
[2023-06-27 20:39] LABS: Urine Appearance Clear; Urine Bilirubin Negative (Negative); Urine Blood Negative (Negative); Urine Color Yellow; Urine Glucose Negative (Negative); Urine Ketones Trace (Negative); Urine Nitrite Negative (Negative); Urine Protein 2+ (>=100 mg/dL) (Negative); Urine Specific Gravity >1.050 (1.002-1.030); Urine Urobilinogen Negative (Negative); Urine pH 6.5 (5.0-8.0)
[2023-06-27 20:47] LABS: Urine Bacteria 1+ /HPF (Absent); Urine Red Blood Cell 1+(3-5/hpf) /HPF (0-Trace); Urine Squamous Epithelial Cell Present /HPF (Absent); Urine White Blood Cell Trace(0-5/hpf) /HPF (0-Trace)
[2023-06-27] MEDS: Carbidopa/Levodop CR 50/200 TAB.CR PO SCH (21:13)
[2023-06-28] MEDS ORDERED: Carbidopa/Levodop 25/100 MG TAB PO SCH (07:00)
[2023-06-28 07:12] LABS: ABS Basophils 0.1 10^3/uL (0.0-0.1); ABS Eosinophils 0.1 10^3/uL (0.0-0.5); ABS Lymphocytes 2.5 10^3/uL (1.0-4.8); ABS Monocytes 0.5 10^3/uL (0.0-0.9); ABS Neutrophils 3.9 10^3/uL (1.5-7.6); ABS Nucleated RBC 0.01 10^3/ul; Eosinophil % 1.3 %; Hematocrit 37.5 % (35-45); Lymphocyte % 34.8 %; Mean Corpuscular Hemoglobin 25.3 pg (27-33); Mean Corpuscular Volume 79.1 fL (80-97); Mean Platelet Volume 8.4 fL (7.5-11.2); Nucleated Red Blood Cells % 0.1 %/100WBC (0.0-0.8); Platelet Count 218 10^3/uL (150-450); Red Blood Count 4.73 10^6/uL (3.63-4.92); Red Cell Distribution Width 16.6 % (12-17)
[2023-06-28 07:36] LABS: Calcium 9.4 mg/dL (8.6-10.3); Creatinine, Serum 0.69 mg/dL (0.51-0.95); Magnesium 1.8 mg/dL (1.9-2.7); Phosphorus 4.3 mg/dL (2.5-5.0); Potassium 4.4 mmol/L (3.5-5.0); eGFR CKD-EPI 92.2 (>60)
[2023-06-28 07:51] LABS: TSH Ultra Thyroid Stim Horm 2.73 mcIU/mL (0.34-5.60)
[2023-06-28] MEDS: Ondansetron ODT 4 mg TAB 4 MG TAB PO PRN (07:52)
[2023-06-28] MEDS ORDERED: Carbidopa/Levodop 25/100 MG TAB ONE (09:23)
[2023-06-28] MEDS: Carbidopa/Levodop 25/100 MG TAB PO SCH (09:33)
[2023-06-28] MEDS: Cyanocobalamin INJ 1,000 MCG/ML VIAL 1 ML VIAL IM ONE (11:41)
[2023-06-28] MEDS: CMCS: Venlafaxine 25 mg TAB (NF) PO SCH (11:51)
[2023-06-28 18:22] VITALS: BP 121/68
== END 2023-06-28 18:27 | disposition home or self-care (01) ==
LOC: EDHOLD 13:09 → ED 13:09 → EDHOLD 06-28 19:20 → ED 06-28 19:20
PROVIDERS: ADMIT Internal Medicine; ATTEND Internal Medicine